=== PATIENT | male | born 1990 | race Caucasian/White ===

== ENCOUNTER 2019-01-30 04:05 | Emergency (ER) | payer SELFPAY ==
[~2019-01-30] VITALS: Ht 190.5 cm; Wt 68.0 kg
[2019-01-30 04:23] VITALS: BP 123/65
[2019-01-30] MEDS ORDERED: Bacitracin Oint UD TOPIC ONE (04:30)
--- NOTE | 2019-01-30 04:31 | Emergency Room Report ---
History of Present Illness General Chief Complaint: Medical Clearance Source: Patient, Law Enforcement Present Illness HPI The patient was arrested for outstanding warrants. He is complaining about ulcer on the dorsum of his right foot. He states he is had multiple treatments for this. Is been ongoing for months. He states it is improving. He does not feel that it is a significant infection that needs oral antibiotics at this time. His tetanus is up-to-date. No fevers, chills, chest pain, palpitations, nausea, vomiting, diarrhea, dysuria , abdominal pain, shortness of breath, depression, visual changes, headache. Allergies: Coded Allergies: No Known Allergies (Unverified , 01/30/19) Patient History Past Medical History: see triage record Social History: Reports: smoking Social History Narrative In custody Reviewed Nursing Documentation: PMH: Agreed; PSxH: Agreed Review of Systems All Other Systems: negative except mentioned in HPI Physical Exam Vital Signs Date Time Temp Pulse Resp B/P (MAP) Pulse Ox O2 Delivery O2 Flow Rate FiO2 01/30/19 04:17 98.2 18 01/30/19 04:23 92 123/65 98 Room Air Sp02 EP Interpretation: reviewed, normal General Appearance: no apparent distress, GCS 15, thin Head: normocephalic, atraumatic Eyes: bilateral eye normal inspection, bilateral eye PERRL ENT: hearing grossly normal, normal voice, moist mucus membranes Neck: full range of motion, supple Respiratory: no respiratory distress, speaking full sentences Cardiovascular #1: regular rate, rhythm Cardiovascular #2: 2+ dorsalis pedis (R) Gastrointestinal: normal inspection, scaphoid Musculoskeletal: no calf tenderness Neurologic: alert, oriented x3, normal gait, grossly normal Psychiatric: mood/affect normal Skin: other - Foot ulcer dorsum of right foot without erythema. Medical Decision Making Diagnostic Impression: Primary Impression: Foot ulcer Qualified Codes: L97.511 - Non-pressure chronic ulcer of other part of right foot limited to breakdown of skin ER Course Patient presents with chronic right foot ulcer that he states is improving. Differential includes cellulitis. There is no evidence of this at this time. Indication for local wound care with topical antibiotics and dressing. Patient stable for outpatient observation and treatment. Last Vital Signs Date Time Temp Pulse Resp B/P (MAP) Pulse Ox O2 Delivery O2 Flow Rate FiO2 01/30/19 04:45 98.2 18 123/65 98 Room Air 6/30/19 04:30 92 Status: improved Disposition: D/C TO LAW [employer]CEMENT IN [facility]UST Condition: Improved Scripts Acetaminophen (Tylenol) 325 Mg Tablet 650 MG ORAL Q6H PRN for Prn Pain/Headache/Temp > 101, #20 TAB 0 Refills Prov: Mp Ruvalcaba MD 01/30/19 Bacitracin (Bacitracin) 28.4 Gm Oint...g. 1 APPLIC TOPIC BID, #20 GM Prov: Mp Ruvalcaba MD 01/30/19 Mp Ruvalcaba MD Jan 30, 2019 04:31
[2019-01-30] MEDS ORDERED: BACITRACIN15 GM TOPIC (04:32)
[2019-01-30] MEDS ORDERED: TYLENOL325 MG ORAL (04:32)
--- NOTE | 2019-01-30 04:35 | NUR ---
ED Nurse Note: PT BROUGHT IN BY [employer] FOR MEDICAL CLEARANCE, PT IS AWAKE, ALERT AND ORIENTED X 4, PT AMBULATORY, HAS CHRONIC WOUND ON RIGHT FOOT, HEALED WITH SMALL, DIME SIZE YELLOW SCAB, NO DRAINAGE, AREA CLEANED AND BACITRACIN OINT APPLIED AND DRESSING APPLIED, PT CLEARED BY MD AND LEAVING UNDER CUSTODY, NAD NOTED DURING D/C. ARMBAND REMOVED.
[2019-01-30 04:45] VITALS: BP 123/65
== END 2019-01-30 04:45 ==
LOC: EMR 04:33
DX: L97.511 Non-pressure chronic ulcer of other part of right foot limited to breakdown of skin (principal); F17.200 Nicotine dependence, unspecified, uncomplicated
CPT/HCPCS: 99282